=== PATIENT | male | born 1995 | race Caucasian/White ===

== ENCOUNTER 2017-06-21 18:21 | Emergency (ER) | payer BC, MEDICAID ==
[~2017-06-21] VITALS: Ht 188 cm; Wt 141.5 kg
[2017-06-21 20:23] LABS: BASOPHIL % 0.1 % (0-2); PLATELET COUNT 315 x10^3mcL (130-400); RED CELL DISTRIBUTION WIDTH 12.9 % (11.5-14.5)
[2017-06-21 20:38] LABS: CALCIUM 8.8 mg/dL (8.5-10.1); CARBON DIOXIDE 28.6 mmol/L (21-32); CHLORIDE SERUM 105 mmol/L (98-107); GFR1 > 60 mL/min; GLUCOSE SERUM 114 mg/dL (74-106); POTASSIUM SERUM 4.1 mmol/L (3.5-5.1); SODIUM SERUM 141 mmol/L (136-145)
[2017-06-21 20:42] LABS: ALBUMIN 4.1 g/dL (3.4-5.0); ALKALINE PHOSPHATASE 68 U/L (46-116); ALT/SGPT 70 U/L (16-63); AMYLASE 42 U/L (25-115); AST/SGOT 24 U/L (15-37); BILIRUBIN TOTAL 1.26 mg/dL (0.20-1.00); LIPASE 104 IU/L (73-393); TOTAL PROTEIN, SERUM 8.2 g/dL (6.4-8.2)
[2017-06-22 00:56] VITALS: BP 135/79
== END 2017-06-22 00:56 | disposition home or self-care (01) ==
LOC: ED 18:21
PROVIDERS: Emergency Medicine
DX: R10.9 Unspecified abdominal pain (principal); E86.0 Dehydration; R19.7 Diarrhea, unspecified; R11.10 Vomiting, unspecified
CPT/HCPCS: 83880; 87046; 87046-59; J2405; J3010; J7030

== ENCOUNTER 2018-05-29 21:16 | Emergency (ER) | payer BC, MEDICAID ==
[~2018-05-29] VITALS: Ht 188 cm; Wt 142.4 kg
[2018-05-29 21:19] VITALS: Ht 188 cm; Wt 142.4 kg
[2018-05-29 21:50] LABS: BASOPHIL % 0.4 % (0-2); PLATELET COUNT 299 x10^3mcL (130-400); RED CELL DISTRIBUTION WIDTH 12.8 % (11.5-14.5)
[2018-05-29 22:12] LABS: CALCIUM 8.8 mg/dL (8.5-10.1); CARBON DIOXIDE 27.6 mmol/L (21-32); CHLORIDE SERUM 105 mmol/L (98-107); GFR1 > 60 mL/min; GLUCOSE SERUM 135 mg/dL (74-106); POTASSIUM SERUM 4.2 mmol/L (3.5-5.1); SODIUM SERUM 139 mmol/L (136-145)
[2018-05-29 22:17] LABS: ALKALINE PHOSPHATASE 87 U/L (46-116); ALT/SGPT 86 U/L (16-63); AST/SGOT 22 U/L (15-37); BILIRUBIN TOTAL 0.92 mg/dL (0.20-1.00); TOTAL PROTEIN, SERUM 7.8 g/dL (6.4-8.2)
[2018-05-29 22:19] LABS: microscopic required? NO
[2018-05-29 22:38] LABS: UA SPECIFIC GRAVITY 1.015 (1.005-1.035); urine erythrocyte NEGATIVE (NEGATIVE)
[2018-05-30 01:33] LABS: AMPHETAMINE QUAL UR NONE DETECTED (See below)
[2018-05-30 02:08] VITALS: BP 140/79
== END 2018-05-30 02:08 | disposition home or self-care (01) ==
LOC: ED 21:16
PROVIDERS: Emergency Medicine
DX: R10.13 Epigastric pain (principal); R50.9 Fever, unspecified; R51 Headache; J45.909 Unspecified asthma, uncomplicated; R06.2 Wheezing; R06.02 Shortness of breath; Z88.5 Allergy status to narcotic agent
CPT/HCPCS: 86308; J2405; J7030